=== PATIENT | male | born 1980 | race Two or more races ===

== ENCOUNTER 2020-05-26 12:39 | Inpatient (IN) | payer BC ==
[2020-05-26] VITALS (12 sets, daily range): BP systolic 125–148; BP diastolic 80–91
[~2020-05-26] VITALS: Ht 180.3 cm; Wt 95.5 kg
[2020-05-26 13:42] LABS: BASOPHILS % (AUTO) 0.3 % (0-1); EOSINOPHILS # (AUTO) 0.2 X10'3 (0-0.9); EOSINOPHILS % (AUTO) 1.9 % (0-6); HEMOGLOBIN 14.6 g/dl (14.0-17.9); LYMPHOCYTES # (AUTO) 2.1 X10'3 (1.1-4.8); LYMPHOCYTES % (AUTO) 17.1 % (21-51); MEAN CORPUSCULAR HEMOGLOBIN 27.8 PG (27.0-31.0); MEAN CORPUSCULAR HGB CONC 33.1 g/dL (33.0-36.5); MEAN CORPUSCULAR VOLUME 83.9 FL (78-98); MONOCYTES # (AUTO) 1.4 X10'3 (0-0.9); MONOCYTES % (AUTO) 11.9 % (2-12); NEUTROPHILS # (AUTO) 8.2 X10'3 (1.8-7.7); NEUTROPHILS % (AUTO) 68.8 % (42-75); PLATELET COUNT 275 X10'3 (140-440); RED BLOOD COUNT 5.24 X10'6 (4.70-6.10); RED CELL DISTRIBUTION WIDTH 14.7 % (11.5-14.5)
[2020-05-26 13:58] LABS: ALANINE AMINOTRANSFERASE 23 U/L (12-78); ALBUMIN 4.1 G/DL (3.4-5.0); ALBUMIN/GLOBULIN RATIO 1.1 (1.1-1.5); ALKALINE PHOSPHATASE 88 IU/L (46-116); ANION GAP 7 (8-16); ASPARTATE AMINO TRANSFERASE 15 U/L (10-37); BLOOD UREA NITROGEN 11 MG/DL (7-18); BUN/CREATININE RATIO 11.7 (5.4-32.0); CALCIUM 8.7 MG/DL (8.5-10.1); CHLORIDE 103 MMOL/L (99-107); CREATININE 0.94 MG/DL (0.60-1.10); GLUCOSE 96 MG/DL (70-104); LIPASE 106 U/L (73-393); SODIUM 140 MMOL/L (135-145); TOTAL CARBON DIOXIDE 30.3 MMOL/L (24-32); TOTAL PROTEIN 7.8 G/DL (6.4-8.2); eGFR 90 ML/MIN
[2020-05-26] MEDS ORDERED: ondansetron/PF 4mg/2ml inj IV ONE (14:35)
[2020-05-26] MEDS ORDERED: morphine 4 MG/ML inj SYRINge IV ONE (14:35)
[2020-05-26] MEDS ORDERED: iohexol 300mg/ml 100ml inj. ONE (14:42)
[2020-05-26] MEDS ORDERED: metroNIDAZOLE-Flagyl 500mg/NS 100 ML IV STA (16:52)
[2020-05-26] MEDS ORDERED: cefazolin/dext.iso 2gm/100ml 100 ML IV STA (16:52)
[2020-05-26] MEDS ORDERED: ceFAZolin 2gm in dextrose, iso 100 ML IV STA (16:58)
[2020-05-26 17:09] LABS: COLOR,URINE YELLOW (Yellow); GLUCOSE, URINE NEGATIVE (Neg); KETONES,URINE TRACE mg/dl (Neg); LEUKOCYTE ESTERASE ,URINE NEGATIVE (Neg); NITRITES, URINE NEGATIVE (Neg); OCCULT BLOOD,URINE NEGATIVE (Neg); PH,URINE 6.5 (4.8-8.0); PROTEIN,URINE NEGATIVE (Neg); UROBILINOGEN,URINE >=8.0 E.U/dL (0.2-1.0)
[2020-05-26] MEDS ORDERED: acetaminophen 650mg rectal suppository RC PRN (17:15)
[2020-05-26] MEDS ORDERED: magnesium 2GM in 50ml NS 50 ML IV PRN (17:15)
[2020-05-26] MEDS ORDERED: diphenhydrAMINE 50 mg/ml inj IV PRN (17:15)
[2020-05-26] MEDS ORDERED: potassium Cl 40MEQ/1/2NS 520ml 520 ML IV PRN ×2 (17:15)
[2020-05-26] MEDS ORDERED: magnesium 4gm in 100ml NS 100 ML IV PRN (17:15)
[2020-05-26] MEDS ORDERED: potassium Cl 20 mEq SR tablet PO PRN ×2 (17:15)
[2020-05-26] MEDS ORDERED: morphine 2 MG/ML inj. syringe IV PRN ×2 (17:15→18:25)
[2020-05-26] MEDS ORDERED: ondansetron/PF 4mg/2ml inj IV PRN ×3 (17:15→19:30)
[2020-05-26 17:18] LABS: CLARITY,URINE SLIGHTLY CLOUDY (Clear); UA COLLECTION TYPE VOIDED
[2020-05-26 17:19] LABS: BACTERIA,URINE NONE SEEN /HPF (Neg); MUCUS STRANDS MANY /LPF (Neg); RBC,URINE NONE SEEN /HPF (0-2); SQUAMOUS EPITHELIAL CELL,UR NONE SEEN /LPF (FEW); WBC,URINE 0-4 /HPF (0-4)
[2020-05-26] MEDS ORDERED: NO HOME MEDS (17:19)
[2020-05-26] MEDS: normal saline 1000ml 1,000 ML IV SCH (17:30)
[2020-05-26] MEDS ORDERED: piperacillin/tazo 4.5gm/100ml 100 ML IV ONE (17:35)
[2020-05-26] MEDS ORDERED: LIDOcaine 1% 30ml preserv. free vial ONE (17:40)
[2020-05-26] MEDS ORDERED: BUPIVAcaine/PF 2.5 mg/ml (0.25%) 30ml vial ONE (17:40)
--- NOTE | 2020-05-26 18:00 | NUR ---
TRANSPORTER HERE TO TAKE PATIENT TO SURGERY. DEPARTED VIA GURNEY, WITH ALL BELONGINGS. IV PATENT AND INFUSING WELL.
[2020-05-26] MEDS ORDERED: meperidine/PF 25mg/ml syringe IV PRN ×2 (18:25)
[2020-05-26] MEDS ORDERED: proCHLORperazine 10 MG/2 ml inj IV PRN (18:25)
[2020-05-26] MEDS ORDERED: ringers solution, lacted 1,000 ML IV SCH (18:25)
[2020-05-26] MEDS ORDERED: morphine 4 MG/ML inj SYRINge IV PRN (18:25)
[2020-05-26] MEDS ORDERED: sevoflurane 250ml liquid IH ONE (18:30)
[2020-05-26] MEDS ORDERED: fentaNYL/PF 50MCG/1 ML 2ML syringe ONE (18:36)
[2020-05-26] MEDS ORDERED: midazolam 2 mg/2 ml injection ONE (18:36)
[2020-05-26] MEDS ORDERED: LIDOcaine 2% (20mg/ml) 5ml vial ONE (18:37)
[2020-05-26] MEDS ORDERED: rocuronium 10mg/ml inj IV ONE (18:37)
[2020-05-26] MEDS ORDERED: propofol inj 20 ML IV ONE (18:37)
--- NOTE | 2020-05-26 18:39 | NUR ---
TC REPORT GIVEN TO RECOVERY ROOM. PATIENT IS IN OR HOLDING, AWAITING SURGERY.
[2020-05-26] MEDS ORDERED: dexamethasone sod phosphate 4mg/ml inj. ONE (18:51)
[2020-05-26] MEDS ORDERED: ondansetron/PF 4mg/2ml inj ONE (18:51)
[2020-05-26] MEDS ORDERED: acetaminophen 1,000mg/100ml IV 100 ML IV ONE (18:54)
[2020-05-26] MEDS ORDERED: meperidine/PF 25mg/ml syringe ONE (19:03)
[2020-05-26] MEDS ORDERED: neostigmine methylsulfate 1 MG/ML 10ml vial ONE (19:26)
[2020-05-26] MEDS ORDERED: glycopyrrolate 0.2mg/ml inj ONE (19:26)
[2020-05-26] MEDS ORDERED: HYDROcodone/acetaminophen 5mg/325mg tablet PO PRN (19:30)
--- NOTE | 2020-05-26 19:36 | NUR ---
Received from OR via , accompanied by Anesthesiologist DR COLLADO and report given by Anesthesiolgist. AWAKENS TO VOICE. VITALS STABLE. DRESSINGS DI. RUFUS PAIN. ABD SOFT.
[2020-05-26] MEDS: meperidine/PF 25mg/ml syringe IV PRN ×2 (19:48→19:58)
[2020-05-26] MEDS: K and/or MAG REPLACEMENT MC SCH (20:00)
--- NOTE | 2020-05-26 20:16 | NUR ---
Report called to receiving nurse. Transferred via BED Belongings . Special Issues communicated to receiving nurse. AWAKE AND ORIENTED. VITALS STABLE. DRESSINGS DI. STATES PAIN IMPROVING. TO SURGICAL RM 355B AT THIS TIME.
--- NOTE | 2020-05-26 20:39 | NUR ---
Patient in room . I have received report from Sadi COTTON and had the opportunity to ask questions and assume patient care.
[2020-05-26] MEDS: morphine 2 MG/ML inj. syringe IV PRN (21:05)
[2020-05-26] MEDS: HYDROcodone/acetaminophen 10/325mg tab PO PRN (23:13)
[2020-05-26] MEDS: piperacillin/tazo 4.5gm/100ml 100 ML IV SCH (23:19)
[2020-05-27] VITALS: BP_SYST 129; BP_SYST 140; BP_DIAS 76; BP_DIAS 91
[2020-05-27] MEDS: morphine 2 MG/ML inj. syringe IV PRN ×2 (01:22→07:38)
[2020-05-27 04:00] VITALS: BP 142/92
[2020-05-27] MEDS: normal saline 1000ml 1,000 ML IV SCH ×2 (04:02→15:41)
[2020-05-27] MEDS: HYDROcodone/acetaminophen 10/325mg tab PO PRN ×4 (04:09→19:44)
--- NOTE | 2020-05-27 06:31 | NUR ---
Problems reprioritized. Patient report given, questions answered & plan of care reviewed with Zoya COTTON.
--- NOTE | 2020-05-27 06:33 | NUR ---
Patient in room [facility]. I have received report from Tesha COTTON and had the opportunity to ask questions and assume patient care.
[2020-05-27 07:15] LABS: BASOPHILS % (AUTO) 0.3 % (0-1); EOSINOPHILS % (AUTO) 0 % (0-6); HEMATOCRIT 41.8 % (42.0-52.0); HEMOGLOBIN 13.7 g/dl (14.0-17.9); LYMPHOCYTES # (AUTO) 0.5 X10'3 (1.1-4.8); LYMPHOCYTES % (AUTO) 6.7 % (21-51); MEAN CORPUSCULAR HEMOGLOBIN 27.8 PG (27.0-31.0); MEAN CORPUSCULAR HGB CONC 32.7 g/dL (33.0-36.5); MEAN PLATELET VOLUME 7.5 FL (7.4-10.4); MONOCYTES # (AUTO) 0.6 X10'3 (0-0.9); MONOCYTES % (AUTO) 7.6 % (2-12); NEUTROPHILS # (AUTO) 6.8 X10'3 (1.8-7.7); NEUTROPHILS % (AUTO) 85.4 % (42-75); PLATELET COUNT 270 X10'3 (140-440); RED BLOOD COUNT 4.92 X10'6 (4.70-6.10); RED CELL DISTRIBUTION WIDTH 14.6 % (11.5-14.5)
[2020-05-27 07:33] LABS: ALANINE AMINOTRANSFERASE 21 U/L (12-78); ALBUMIN 3.4 G/DL (3.4-5.0); ALBUMIN/GLOBULIN RATIO 0.9 (1.1-1.5); ALKALINE PHOSPHATASE 78 IU/L (46-116); ANION GAP 7 (8-16); ASPARTATE AMINO TRANSFERASE 12 U/L (10-37); BILIRUBIN,TOTAL 0.7 MG/DL (0.1-1.0); BLOOD UREA NITROGEN 9 MG/DL (7-18); BUN/CREATININE RATIO 7.8 (5.4-32.0); CALCIUM 8.5 MG/DL (8.5-10.1); CHLORIDE 104 MMOL/L (99-107); CREATININE 1.16 MG/DL (0.60-1.10); GLUCOSE 143 MG/DL (70-104); MAGNESIUM 2.3 MG/DL (1.5-2.4); POTASSIUM 4.6 MMOL/L (3.5-5.1); SODIUM 139 MMOL/L (135-145); TOTAL CARBON DIOXIDE 27.9 MMOL/L (24-32); TOTAL PROTEIN 7.1 G/DL (6.4-8.2); eGFR 71 ML/MIN
[2020-05-27] MEDS: piperacillin/tazo 4.5gm/100ml 100 ML IV SCH ×2 (07:38→17:24)
[2020-05-27 08:00] VITALS: BP 133/80
[2020-05-27] MEDS: K and/or MAG REPLACEMENT MC SCH (08:00)
[2020-05-27] MEDS ORDERED: methylnaltrexone br 12mg/0.6ml inj***SubQ only SQ ONE (10:55)
[2020-05-27 11:00] VITALS: BP 126/85
[2020-05-27] MEDS ORDERED: magnesium hydroxide 30ml (MOM) UD suspension PO ONE (18:50)
[2020-05-27] MEDS ORDERED: HYDR-3972 PO (18:58)
--- NOTE | 2020-05-27 19:40 | NUR ---
DISCHARGE INSTRUCTIONS REVIEWED WITH PATIENT VERBALIZES UNDERSTANDING. GIVEN TORADOL AT 1900 AND PT ALSO REQUESTED NORCO JUST PRIOR TO DISCHARGE. INSTRUCTED PT TO AMBULATE AND TO ADVANCE DIET SLOWLY BOWEL SOUNDS HYPOACTIVE AND NO GAS YET. TAKING DOWN TO LOBBY VIA W/C TOP BE DRIVEN HOME BY PIPPA
[2020-05-27] MEDS ORDERED: ketorolac trometh. 30mg/ml inj. IV SCH (20:00)
== END 2020-05-27 19:40 | disposition home or self-care (01) | DRG 343 ==
LOC: ER 12:40 → SUR 3N 17:15 → CMPBEDREQ 23:27
PROVIDERS: ADMIT Family Medicine; ATTEND Surgery
PROC: 8E0W4CZ Robotic Assisted Procedure of Trunk Region, Percutaneous Endoscopic Approach (ICD-10-PCS; 2020-05-26)
PROC: BW211ZZ Computerized Tomography (CT Scan) of Abdomen and Pelvis using Low Osmolar Contrast (ICD-10-PCS; 2020-05-26)
PROC: 0DTJ4ZZ Resection of Appendix, Percutaneous Endoscopic Approach (ICD-10-PCS; principal; 2020-05-26 18:30)
DX: K35.80 Unspecified acute appendicitis (principal); Z20.822 Contact with and (suspected) exposure to COVID-19; Z82.49 Family history of ischemic heart disease and other diseases of the circulatory system
CPT/HCPCS: 96374; 96375; 99285; Z7506; Z7508; 36415; 74177; 80053; 81001; 83690; 83735; 85025; 87081; 87635; 97161; 97530; A4215; A4618; C9803; G0378; J0131; J1100; J1885; J2001; J2175; J2212; J2250; J2270; J2405; J2543; J2704; J2710; J3010; J3490; J7030; J7120; Q9967